=== PATIENT | female | born 1960 | race Caucasian/White ===

== ENCOUNTER 2023-08-06 10:06 | Emergency (ER) | payer BC, OTHER ==
[2023-08-06 10:12] VITALS: BP 138/72; PULSE 75; RESP 18; TEMP 98.4; BMI 20.5
== END 2023-08-06 12:35 | disposition home or self-care (01) ==
LOC: JER 10:06
DX: M79.89 Other specified soft tissue disorders (principal); M79.662 Pain in left lower leg
CPT/HCPCS: 93970-TC; 99284-25